=== PATIENT | female | born 1960 | race Caucasian/White ===

== ENCOUNTER → 2021-10-24 | Day surgery (SDC) | payer OTHER ==
[~2021-10-24] VITALS: Ht 165.1 cm; Wt 104.3 kg
[~2021-10-24] MED LIST: COUMADIN10 MG PO; JANTOVEN4 MG PO; LISINOPRIL-HCT1 EACH PO; OMEPRAZOLE 20MG20 MG PO; PROTONIX 40MG T40 MG PO; SYNTHROID75 MCG PO; ZOCOR40 MG PO; ZYRTEC10 M3 PO
== END | disposition home or self-care (01) ==
LOC: FAS 09:26
DX: S73.102A Unspecified sprain of left hip, initial encounter (principal); I10 Essential (primary) hypertension; Z79.01 Long term (current) use of anticoagulants; Z79.899 Other long term (current) drug therapy; X58.XXXA Exposure to other specified factors, initial encounter
CPT/HCPCS: 76000; J1040; J7120; Q9967

== ENCOUNTER → 2022-01-10 | Day surgery (SDC) | payer OTHER ==
[~2022-01-10] VITALS: Ht 165.1 cm; Wt 104.3 kg
[2022-01-10 09:53] LABS: HGB 12.8 g/dl (12.5-16.0); MCH 30.8 pg (25.0-31.0); MCHC 33.7 g/dL (32.0-36.0); MCV 91.3 fL (78.0-100.0); MPV 9.4 fL (6.0-9.5); RBC 4.16 M/uL (4.20-5.40); RDW 14.5 % (11.5-14.0); WBC 6.9 K/uL (4.0-10.5)
[2022-01-10 10:08] LABS: ALBUMIN 3.4 g/dL (3.4-5.0); BILIRUBIN - TOTAL 0.4 mg/dL (0.2-1.0); BUN/CREAT RATIO (CALC) 16.5 RATIO; CREATININE 0.91 mg/dL (0.51-0.95); GLOBULIN (CALCULATION) 3.6 g/dL; POTASSIUM 3.8 mmol/L (3.5-5.1)
== END | disposition home or self-care (01) ==
LOC: FAS 09:27
PROVIDERS: Surgery
DX: K22.2 Esophageal obstruction (principal); K44.9 Diaphragmatic hernia without obstruction or gangrene; K29.50 Unspecified chronic gastritis without bleeding; K21.00 Gastro-esophageal reflux disease with esophagitis, without bleeding; I10 Essential (primary) hypertension; E78.00 Pure hypercholesterolemia, unspecified; Z86.718 Personal history of other venous thrombosis and embolism; Z87.891 Personal history of nicotine dependence; Z79.01 Long term (current) use of anticoagulants; Z79.899 Other long term (current) drug therapy
CPT/HCPCS: 36415; 80053; C1726; J2250; J2704; J7120